=== PATIENT | female | born 1965 | race Caucasian/White ===

== ENCOUNTER 2017-10-14 07:52 | Emergency (ER) | payer BC ==
[~2017-10-14] VITALS: Ht 149.9 cm; Wt 65.8 kg
[2017-10-14 07:54] VITALS: BP_SYST 152
[2017-10-14] MEDS ORDERED: KETOROLAC TROMETHAMINE 30 MG VIAL IVP ONE (08:15)
[2017-10-14] MEDS ORDERED: MORPHINE 4 MG/ML INJ. SYRINGE IVP ONE (08:15)
[2017-10-14] MEDS ORDERED: DIPHENHYDRAMINE INJ 50 MG/ML VIAL IVP ONE (08:15)
[2017-10-14 08:52] LABS: BILIRUBIN,URINE NEGATIVE (NEGATIVE); BLOOD, URINE 1+ (NEGATIVE); CLARITY/URINE SL CLOUDY (CLEAR); COLOR,URINE YELLOW (YELLOW); GLUCOSE,URINE NEGATIVE (NEGATIVE); KETONES,URINE TRACE (NEGATIVE); LEUKOCYTE ESTERASE ,URINE 1+ (NEGATIVE); NITRITE, URINE NEGATIVE (NEGATIVE); PH,URINE >=9.0 (5.0-8.0); PROTEIN URINE TRACE (NEGATIVE); UROBILINOGEN,URINE 0.2 (0.2-1.0)
[2017-10-14 08:56] LABS: BASOPHILS % (AUTO) 0.7 % (0.0-2.0); EOSINOPHILS % (AUTO) 0.6 % (0.0-4.0); HEMATOCRIT 42.2 % (36-48); HEMOGLOBIN 14.1 g/dL (12.0-16.0); LYMPHOCYTES % (AUTO) 18.1 % (20.5-51.5); MEAN CORPUSCULAR HEMOGLOBIN 30 pg (27-31); MEAN CORPUSCULAR HGB CONC 34 % (32-36); MEAN CORPUSCULAR VOLUME 91 fL (79.0-98.0); MONOCYTES # (AUTO) 0.3 K/uL (0.0-1.0); MONOCYTES % (AUTO) 5.7 % (1.7-9.3); NEUTROPHILS # (AUTO) 4.5 K/uL (1.8-7.7); NEUTROPHILS % (AUTO) 74.9 % (40.0-70.0); PLATELET COUNT (AUTO) 267 K/uL (130-430); RED BLOOD CELL COUNT(AUTO) 4.66 MIL/uL (4.2-6.2); RED CELL DISTRIBUTION WIDTH 13.4 % (9.0-15.0); WHITE BLOOD COUNT (AUTO) 5.8 K/uL (4.8-10.8)
[2017-10-14 09:24] LABS: PROTHROMBIN TIME 9.9 SECS (9.5-12.5)
[2017-10-14 09:36] LABS: CALCIUM 10.1 mg/dL (8.4-11.0); CREATININE 0.8 mg/dL (0.55-1.30); POTASSIUM 3.7 mmol/L (3.5-5.1)
[2017-10-14 09:40] LABS: ALBUMIN 4.1 g/dL (3.4-4.8); TOTAL BILIRUBIN 0.5 mg/dL (0.0-1.0)
[2017-10-14] MEDS ORDERED: MAGNESIUM CITRATE 300 ML ORAL SOLUTION PO ONE (10:15)
[2017-10-14 10:23] VITALS: BP_SYST 148
[2017-10-14 13:18] LABS: BACTERIA,URINE RARE /HPF (None Seen); RBC,URINE 0-3 /HPF (0-3); URINE AMORPHOUS PHOSPHATES 4+ /HPF (None Seen); WBC,URINE 0-3 /HPF (0-3)
== END 2017-10-14 10:23 | disposition home or self-care (01) ==
LOC: SED 07:52
DX: N20.0 Calculus of kidney (principal); Z88.2 Allergy status to sulfonamides; Z90.89 Acquired absence of other organs
CPT/HCPCS: 36415; 74176; 80053; 81000; 83605; 83690; 85025; 85610; 87040; 93005; 96374; 96375; 99285; J1200; J1885; J2270

== ENCOUNTER 2021-06-06 09:00 | Inpatient (IN) | payer BC, SELFPAY ==
[~2021-06-06] VITALS: Ht 149.9 cm; Wt 68.5 kg
[2021-06-13] MEDS ORDERED: CEFAZOLIN 1 GM IVPB PREMIX 50 ML IV ONE (09:30)
[2021-06-13] MEDS ORDERED: MIDAZOLAM HCL 5 MG/5 ML VIAL IVP ONE (10:55)
[2021-06-13] MEDS ORDERED: SEVOFLURANE 15 MIN GAS INH ONE (10:55)
[2021-06-13] MEDS ORDERED: PROPOFOL 200MG/ 20ML VIAL (DIPRIVAN) IV ONE (10:55)
[2021-06-13] MEDS ORDERED: fentaNYL CITRATE/PF 100 MCG/2 ML AMP IVP ONE (10:55)
[2021-06-13] MEDS ORDERED: ONDANSETRON HCL 4 MG/2 ML VIAL IVP ONE (10:55)
[2021-06-13] MEDS ORDERED: WATER FOR IRRIGATION,STERILE 1,000 ML IRRIG.SOLN IR ONE (10:55)
[2021-06-13] MEDS ORDERED: LR 1,000 ML IV.SOLN IV ONE (10:55)
[2021-06-13] MEDS ORDERED: METOCLOPRAMIDE HCL 10 MG/2 ML VIAL IVP PRN (11:45)
[2021-06-13] MEDS ORDERED: HYDROmorphone 1 MG/ML INJ. CARTRIDGE IVP PRN ×2 (11:45→13:45)
[2021-06-13] MEDS ORDERED: KETOROLAC TROMETHAMINE 30 MG VIAL IVP PRN (11:45)
[2021-06-13] MEDS ORDERED: NALOXONE HCL 0.4 MG/ML AMP (NARCAN) IVP PRN ×4 (11:45→13:45)
[2021-06-13] MEDS ORDERED: HYDROcodone/ACETAMIN 5-325 MG TAB (NORCO/ VICODIN) PO PRN ×2 (13:45)
[2021-06-13] MEDS ORDERED: ACETAMINOPHEN 325 MG TABLET PO PRN (13:45)
[2021-06-13] MEDS ORDERED: ONDANSETRON HCL 4 MG/2 ML VIAL IVP PRN (13:45)
[2021-06-13] MEDS ORDERED: HYDROmorphone 2 MG/ML VIAL ONE (14:46)
[2021-06-13] MEDS: D5/0.45 NS 1,000 ML IV SCH ×2 (19:18→22:59)
[2021-06-13] MEDS: CEFAZOLIN 1 GM IVPB PREMIX 50 ML IV SCH (19:19)
--- NOTE | 2021-06-13 19:45 | NUR ---
CHANGE OF SHIFT; endorsed by day shift, S/ P bilateral simple mastectoctomy. dressing intact with 4 J franz. 2each on left and rt. side. IVF infusing. call light within reach.
[2021-06-13 19:46] VITALS: BP_SYST 156
[2021-06-13 20:00] VITALS: BP_SYST 137
--- NOTE | 2021-06-13 20:02 | NUR ---
ADMISSION NOTE Received patient from PACU via bde. Patient admitted with diagnosis of bilateral simple mastectomy. Patient is awake, alert, oriented x4 4X meghan franz noted. rt side more drainage than the left. Patient oriented to hospital room, call light, toileting, pain management and safety-teach back done. Personal belongings checked and Belongings List documented. Call light within reach. Addendum: 06/13/21 at 2006 by Whit Henao RN Patient was transferred from recovery at 16:30. late entry due to patient care
--- NOTE | 2021-06-13 20:05 | NUR ---
Patient Patient is comfortable at this time. dressing dry and intact. john emptied and output documented. Endorsed to Quynh CARVAJAL
[2021-06-13] MEDS: FAMOTIDINE PF 20 MG/2 ML VIAL IVP SCH (20:24)
--- NOTE | 2021-06-13 21:00 | NUR ---
NOTES: pt. stand by assist to the restroom, tolerated well. due medication given. instructed on use of IS. on room air. IV on rt. hand. tolerating fluids , no nausea nor vomiting.
[2021-06-13 23:08] VITALS: BP_SYST 113
--- NOTE | 2021-06-13 23:19 | NUR ---
NOTES: pt. medicated for c/o post op pain. repositioned self. IVF continuous. needs atteended. Yolanda franz drained wirh serous bloody drainage.
--- NOTE | 2021-06-14 02:15 | NUR ---
NOTES: pt. checked and sleeping. due IV antibiotic started.
[2021-06-14] MEDS: CEFAZOLIN 1 GM IVPB PREMIX 50 ML IV SCH (02:24)
--- NOTE | 2021-06-14 03:00 | NUR ---
NOTES: pt. woke up nd ambulated to the restroom. condition observed.
--- NOTE | 2021-06-14 06:00 | NUR ---
NOTES: pt. already awake, chatting with the room mate. IVF continuous. ambulated to the restroom, off scd/ needs attended.
[2021-06-14 08:00] VITALS: BP_SYST 123
[2021-06-14] MEDS: FAMOTIDINE PF 20 MG/2 ML VIAL IVP SCH (08:58)
[2021-06-14 12:38] VITALS: BP_SYST 128
--- NOTE | 2021-06-14 14:36 | NUR ---
PATIENT LATE ENTRY DUE TO PATIENT CARE: 0700- RESUMED CARE FROM NURSE SOCO. PATIENT JUST GOT BACK FROM THE TOILET DURING BEDSIDE REPORT. OBSERVED PT GAIT STEADY. DENIES PAIN AT THIS TIME. PLAN OF CARE DISCUSSED WITH THE PATIENT. PATIENT VERBALIZED UNDERSTANDING. 09:00- PATIENT IN BED. DUE MEDICATIONS GIVEN. EDUCATED PATIENT ON ANGELLA DRAIN WITH RETURN DEMONSTRATION. PATIENT FEELS COMFORTABLE TAKING CARE OF THE ANGELLA AT HOME. INSTRUCTED TO RECORD OUTPUT WITH SHEET PROVIDED TO HER. PATIENT VERBALIZED UNDERSTANDING D/C Patient 13:40 Patient given medication reconciliation form and D/C instructions. Exit Care provided. Patient verbalized understanding. MD discussed with patient the results and treatment provided. Ambulatory with steady gait for discharge to home. Patient in stable condition, ID band removed. IV catheter removed, intact and dressing applied, no active bleeding. Rx of given. Patient educated on pain management. All belongings sent with patient.
== END 2021-06-14 15:14 | disposition home or self-care (01) | DRG 581 ==
LOC: SMU 06-13 07:04 → EDSTATUS 06-13 09:35 → SMU 06-13 16:47
PROVIDERS: ADMIT Colon & Rectal Surgery; ATTEND Colon & Rectal Surgery
PROC: 0HBV0ZZ Excision of Bilateral Breast, Open Approach (ICD-10-PCS; 2021-06-13)
PROC: 07B60ZX Excision of Left Axillary Lymphatic, Open Approach, Diagnostic (ICD-10-PCS; principal; 2021-06-13 10:55)
DX: C50.912 Malignant neoplasm of unspecified site of left female breast (principal); Z20.822 Contact with and (suspected) exposure to COVID-19; G56.00 Carpal tunnel syndrome, unspecified upper limb; M54.9 Dorsalgia, unspecified; G89.29 Other chronic pain; E78.5 Hyperlipidemia, unspecified; R73.03 Prediabetes; Z90.49 Acquired absence of other specified parts of digestive tract; Z80.0 Family history of malignant neoplasm of digestive organs; Z83.3 Family history of diabetes mellitus; Z80.42 Family history of malignant neoplasm of prostate; Z82.49 Family history of ischemic heart disease and other diseases of the circulatory system; Z80.1 Family history of malignant neoplasm of trachea, bronchus and lung; Z84.89 Family history of other specified conditions
CPT/HCPCS: 76098-TC; 78195; 87081; 88305; 88307; 88342; A9541; J0690; J1170; J2250; J2405; J2704; J3010; J3490; J7120; U0003